=== PATIENT | male | born 1960 | race Caucasian/White ===

== ENCOUNTER 2023-06-26 16:13 | Emergency (ER) | payer OTHER, SELFPAY ==
[2023-06-26 16:22] VITALS: BP 120/75; PULSE 66; RESP 16; TEMP 36.8; O2SAT 96; BMI 28.3
--- NOTE | 2023-06-26 19:27 | ED.GENADULT ---
HPI - General Adult General Chief complaint: Shortness of Breath/Dyspnea Stated complaint: Short of breath, hx of blood clots, o2 90% Time Seen by Provider: 06/26/23 18:46 History of Present Illness HPI narrative: This patient is sent here from clinic because of a possibility of a blood clot. The patient did have a blood clot about 20 years ago and is not taking any anticoagulants. He does not report any unilateral limb pain or swelling. 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 He does report some tingling that extends into both arms and into all the fingers of his hands. This tingling comes and goes and seems to happen more in the night. He does report some chest discomfort but arrives with normal vital signs. Related Data Home Medications Medication Instructions Recorded Confirmed gabapentin 100 mg capsule PO 06/26/23 simvastatin 10 mg tablet 10 mg PO QPM 06/26/23 06/26/23 Previous Rx's Medication Instructions Recorded methylprednisolone 4 mg tablets in See Rx Instructions PO .COMPLEX 06/26/23 a dose pack (Medrol (Jose)) #21 ea Allergies Allergy/AdvReac Type Severity Reaction Status Date / Time No Known Drug Allergies Allergy Verified 06/26/23 16:20 Review of Systems Status of ROS: Reports: 10 or more systems reviewed and unremarkable except as noted in History and below Narrative: Constitutional: No fevers, no weight gain or loss. Eyes: No discharge. No vision changes. HENT: No congestion, no sore throat, no ear pain. Cardiovascular: No chest pain, no palpitations. Respiratory: No wheezes, no cough. Gastrointestinal: No abdominal pain, no vomiting, no diarrhea. Genitourinary: No dysuria, no hematuria. Musculoskeletal: Normal range of motion. Skin: No rashes, no pruritis. Neurological: No dizziness, weakness, speech change. Sensory change as described above. Endo/Heme/Allergies: No bruising or bleeding. No polydipsia. Pysch: no suicidality, no anxiety, no insomnia. All other systems reviewed and are negative. Exam Narrative: Exam Narrative: Constitutional: Well-developed, well-nourished, no acute distress. HEENT: Normocephalic, atraumatic. Neck: Normal range of motion. Nontender. Supple. Heart: Regular. No murmurs. Normal rate. Intact distal pulses. Lungs: Clear to auscultation. No chest discomfort. No wheezes, rhonchi, or rales. Abdomen: Normal bowel sounds. Nontender. No rebound tenderness. Genitalia: Deferred. Back: No midline tenderness. Normal range of motion. Extremities: Normal range of motion. No injury. Skin: Intact. No rash. Warm. No erythema or pallor. Neurologic: No altered sensation. No weakness. Alert and oriented. Phalen's test and Tinel's sign are negative when assessing his carpal tunnel. Spurling's test is also negative. Psychiatric: No suicidality. No anxiety or depression. No insomnia. Nursing notes and vitals signs are reviewed. Const: Vital Signs, click to edit/add: Vital Signs - 24 hr 06/26/23 16:22 Temperature 98.2 F Pulse Rate [Pulse Oximeter] 66 Respiratory Rate 16 Blood Pressure [Ri ght Upper Arm] 120/75 Pulse Oximetry 96 Oxygen Delivery Me thod Room Air Course Vital Signs Vital signs: Initial Vital Signs Temperature 98.2 F 06/26/23 16:22 Temperature Source Temporal Artery Scan 06/26/23 16:22 Pulse Rate 66 06/26/23 16:22 Respiratory Rate 16 06/26/23 16:22 Blood Pressure 120/75 06/26/23 16:22 Blood Pressure Mean 90 06/26/23 16:22 Pulse Oximetry 96 06/26/23 16:22 Oxygen Delivery Method Room Air 06/26/23 16:22 Vital Signs Temperature 98.2 F 06/26/23 16:22 Pulse Rate 66 06/26/23 16:22 Respiratory Rate 16 06/26/23 16:22 Blood Pressure 120/75 06/26/23 16:22 Pulse Oximetry 96 06/26/23 16:22 Oxygen Delivery Method Room Air 06/26/23 16:22 Temperature 98.2 F 06/26/23 16:22 Pulse Rate 66 06/26/23 16:22 Respiratory Rate 16 06/26/23 16:22 Blood Pressure 120/75 06/26/23 16:22 Pulse Oximetry 96 06/26/23 16:22 Oxygen Delivery Method Room Air 06/26/23 16:22 Medical Decision Making MDM Narrative Medical decision making narrative: This patient comes in with above-stated concerns. He has not had his labs checked. I did discuss matters related to possibility of a blood clot. He does score 3 on the revised [place] score or which puts him at low risk for a blood clot. His D-dimer today returns undetected which gives further reassurance that he is not experiencing any thrombus. Additionally his troponin returns at 0 and other lab results are also normal. The patient's symptoms sound more as such coming from musculoskeletal or nerve impingement circumstances which we are unable to unpack further diagnostically at this time. I advised the patient to follow-up with his primary physician in indicated that perhaps an MRI would be indicated to evaluate these matters. He did receive a prescription for Medrol Dosepak. Lab Data Labs: Lab Results 06/26/23 06/26/23 Range/Units 19:26 19:40 WBC 5.91 (4.50-11.00) K/uL RBC 5.32 (4.30-5.90) m/uL Hgb 16.8 (13.5-17.5) gm/dL Hct 48.9 (37.0-53.0) % MCV 92 (80-100) fL MCH 32 (26-34) pg MCHC 34 (32-36) gm/dL RDW Coeff of Priya 11.9 (11.5-15.5) % Plt Count 145 (140-440) K/uL Neut % (Auto) 56.0 (42.0-72.0) % Lymph % (Auto) 27.6 (20-44) % Morrill % (Auto) 10.0 (0.0-11.0) % Eos % (Auto) 5.9 (0.0-7.0) % Baso % (Auto) 0.3 (0.0-3.0) % Neut # (Auto) 3.31 (1.7-7.0) K/uL Lymph # (Auto) 1.63 (0.90-2.90) K/uL Morrill # (Auto) 0.60 (0.00-0.90) K/UL Eos # (Auto) 0.35 (0.00-0.50) K/uL Baso # (Auto) 0.02 (0.00-0.30) K/uL Abs Immat Gran (auto) 0.01 (0.00-0.30) K/uL Imm/Tot Granulo (auto) 0.2 % D-Dimer Quant (PE/DVT) 0.30 (0.00-0.50) ug/ml Sodium 139 (135-149) mmol/L Potassium 4.1 (3.6-5.1) mmol/L Chloride 108 (96-114) mmol/L Carbon Dioxide 25 (20-32) mmol/L Anion Gap 6 L (7-15) mEq/L BUN 25 (7-30) mg/dL Creatinine 0.9 (0.5-1.5) mg/dL Estimated Creat Clear 64.92 Estimated GFR 95 ml/min Glucose 92 (60-115) mg/dL Calcium 8.9 (8.4-10.6) mg/dL C-Reactive Protein 0.7 (0.5-1.0) mg/dL POC Troponin I 0.00 L (0.01-0.04) ng/ml Discharge Plan Discharge Clinical Impression: Arm paresthesia, right, Arm paresthesia, left Patient Disposition: Home, Self-Care Condition: Stable Additional Instructions: Take medication as prescribed. Follow up with MD for further evaluation and treatment. Return if worsening. Prescriptions: New methylprednisolone [Medrol (Jose)] 4 mg tablets,dose pack See Rx Instructions .ROUTE .COMPLEX Qty: 21 0RF Rx Instructions: orally per package directions No Action simvastatin 10 mg tablet 10 mg PO QPM gabapentin 100 mg capsule PO Follow Up/Referrals: Ahmet Morillo MD [Staff Physician] - Stand Alone Forms: Insurance Business Applications Info Instructions
[2023-06-26 20:11] LABS: Basophils Absolute Auto 0.02 K/uL (0.00-0.30); Basophils Percent Auto 0.3 % (0.0-3.0); Eosinophils Absolute Auto 0.35 K/uL (0.00-0.50); Eosinophils Percent Auto 5.9 % (0.0-7.0); Hematocrit 48.9 % (37.0-53.0); Hemoglobin* 16.8 gm/dL (13.5-17.5); Immature Granulocytes Abs Auto 0.01 K/uL (0.00-0.30); Immature Granulocytes Pct Auto 0.2 %; Lymphocytes Absolute Auto 1.63 K/uL (0.90-2.90); Lymphocytes Percent Auto 27.6 % (20-44); Mean Corpuscular HGB Conc 34 gm/dL (32-36); Mean Corpuscular Hemoglobin 32 pg (26-34); Mean Corpuscular Volume 92 fL (80-100); Neutrophils Absolute Auto 3.31 K/uL (1.7-7.0); Platelet Count* 145 K/uL (140-440); RDW Coefficient of Variation % 11.9 % (11.5-15.5); Red Blood Count 5.32 m/uL (4.30-5.90); White Blood Count* 5.91 K/uL (4.50-11.00)
[2023-06-26 20:16] LABS: Slide Review Reflex No
[2023-06-26 20:26] LABS: Chloride* 108 mmol/L (96-114); Potassium* 4.1 mmol/L (3.6-5.1); Sodium* 139 mmol/L (135-149)
[2023-06-26 20:29] LABS: Creatinine* 0.9 mg/dL (0.5-1.5); Est. Creatinine Clearance* 64.92; Estimated Glomerular Filt Rate 95 ml/min
[2023-06-26 20:30] LABS: Anion Gap 6 mEq/L (7-15); Blood Urea Nitrogen* 25 mg/dL (7-30); Calcium* 8.9 mg/dL (8.4-10.6); Carbon Dioxide* 25 mmol/L (20-32); Glucose* 92 mg/dL (60-115)
[2023-06-26 20:32] LABS: C Reactive Protein* 0.7 mg/dL (0.5-1.0)
[2023-06-26 21:03] LABS: Erythrocyte SedimentationRate* 2 mm/hr (2-15)
[2023-06-26 21:18] VITALS: PULSE 77; O2SAT 93
[2023-06-26 21:19] LABS: Vitamin B12* 803 pg/mL (243-894)
== END 2023-06-26 21:18 | disposition home or self-care (01) ==
PROVIDERS: Emergency Provider Emergency Medicine Emergency Medical Services
DX: R20.2 Paresthesia of skin (principal)
CPT/HCPCS: 36415; 80048; 82607; 84484; 85025; 85379; 85651; 86140; 99283; 99284